=== PATIENT | male | born 1950 | race Caucasian/White ===

== ENCOUNTER 2022-02-25 19:18 | Emergency (ER) | payer OTHER ==
--- OUTSIDE RECORDS SUMMARY | 2022-02-25 19:21 | XMS REPORT | Continuity of Care Document ---
:1950 Author Organization [facility] t Address [address] [place] [address] Care Team Providers Name Role Phone Unavailable Unavailable Unavailable Payers Payer Name Policy Type Policy Number Effective Date Expiration Date S ource Problems This patient has no known problems. Allergies, Adverse Reactions, Alerts Allergy Allergy Status Severity Reaction(s) Onset Inactive Treating Comm ents Source Name Type Date Date Clinician No Known DA Active U 0 [facility] No Known DA Active U 0 [facility] No Known DA Active U 2008-0 [facility] 06-02 [facility] Intolera 00:00: d nces 00 [facility] Not DA Active U 2008-0 [facility] Converte 06-02 [facility] d 80. 00:00: d See 00 [facility] Medications This patient has no known medications. Procedures This patient has no known procedures. Encounters Start End Encounter Admission Attending Care Care Encounter Source Date/Time Date/Time Type Type Clinicians Facility Department ID 2020-06-10 Inpatient [facility] SUSY [id number] [facility] 09:41:00 [facility] Results Test Description Test Time Test Comments Results Result Comments Source GLUBED 2020-06-11 21:11:00 Test Item Value Reference Range Interpretation Comme nts GLUBED (test code = GLUBED) 227 MG/DL 74-106 H [id number] 06:37:00 Test Item Value Reference Range Interpretation Comments GLUBED (test code = GLUBED) 147 MG/DL 74-106 H PROCALCITONIN (PCT)2020-06-11 05:23:00 Test Item Value Reference Range Interpretation Comments PROCALCITONIN (PCT) 2.24 NG/ML HH Critical Value reported (test code = PROCAL) toFirst Name:[id number] Last Name:MACI NARAYAN READ BACK AND ISABELLE NicholsLAB.RD, on , @ 5656. Proca lcitonin (PCT) Normal Va lue: <0.05 NG/ML <0. 5 NG/ML - low risk of s evere sepsis and/or s eptic shock>2.0 NG/ML - high risk of severe sepsis and/or septic s hock PCT concentrations between 0.5 and 2.0 NG/ ML should beinterp reted taking into acc ount the patient's histo ry.It is recommended to retest PCT within 6-24 hours if anyconcentra tions between 0.5-2.0 NG/ML are obtained. LACTIC [id number] 05:04:00 Test Item Value Reference Range Interpretation Comments LACTIC ACID (test code = LACT) 0.9 mmol/L 0.7-2.0 N [id number] 20:54:00 Test Item Value Reference Range Interpretation Comments GLUBED (test code = GLUBED) 228 MG/DL 74-106 H [id number] 18:34:00 Test Item Value Reference Range Interpretation Comments D-DIMER (test 727 ng/mLFEU 0-500 HH Critical Value reported code = toFirst Name:FT [id number] Last DDIMER) Name:RESULTS RE AD BACK AND VERIFIEDby TALA SMITH, on 06/10/20, @ 183 4.THE DDIMER METHOD IS USED IN THE EXCLUSION OF DE EP VEINTHROMBOSIS AND/OR PULMONARY EMBOL ISM AND THE CLINICAL CUT-OF F VALUE FOR EXCLUSION (500 NG/ML FEU) OF THESE CONDITION SIS VALIDATED BY THE MANUFACT URER OF THE METHOD. A NEGAT LEXX DDIMER RESULT WHEN COM BINED WITH A CLINICALASSESSM ENT OF LOW PRETEST PROBABI LITY HAS BEEN SHOWN TO HAVEA HIGH NEGATIVE PREDICTIVE VALU E OF DVT OR PE. D-DIMER ALEXUS UES >500 ng/mL ARE NOT D IAGNOSTIC FOR DVT,PEOR DIC WI THOUT OTHER CONFIRMATORY TE STS AND APPROPRIATECLIN ICAL EVALUATIONS. LACTIC DEHYDROGENASE(LDH)2020-06-10 17:52:00 Test Item Value Reference Range Interpretation Comments LACTIC 374 U/L 313-618 N DEHYDROGENASE(LDH) (test code = LDH) Please be advised of the updated reference range s for the new Chemistry instrumentation . [id number] 17:52:00 Test Item Value Reference Range Interpretation Comments FERRITIN (test code = ANABEL) 30.0 ng/mL 17.9-464 N C REACTIVE [id number] 17:52:00 Test Item Value Reference Range Interpretation Comments C REACTIVE PROTEIN (test code = 44.3 mg/L 0-9 H CRP) LACTIC [id number] 17:41:00 Test Item Value Reference Range Interpretation Comments LACTIC ACID (test 2.8 mmol/L 0.7-2.0 HH Critical V alue reported code = LACT) toFirst Name: [id number] Last Name:RESUL TS READ BACK AND VERIFI EDby JONNATHANLAV, on 0 06/10/20, @ 1741. LACTIC DEHYDROGENASE(LDH)2020-06-10 17:40:00 Test Item Value Reference Range Interpretation Comments LACTIC 374 U/L 313-618 N DEHYDROGENASE(LDH) (test code = LDH) Please be advised of the updated reference range s for the new Chemistry instrumentation . [id number] 17:40:00 Test Item Value Reference Range Interpretation Comments FERRITIN (test code = ANABEL) ng/mL 17.9-464 C REACTIVE [id number] 17:40:00 Test Item Value Reference Range Interpretation Comments C REACTIVE PROTEIN (test code = 44.3 mg/L 0-9 H CRP) CARDIAC ENZYMES [id number] 17:28:00 Test Item Value Reference Range Interpretation Comments TROPONIN-I (test 0.013 ng/mL 0.012-0.033 N code = TROPI) Please be advised of the updated reference ranges for the new Chemistry instrumentation . TROS TROPONIN I CRITERIANORM AL PATIENT W/O CIRCULATING TNI: 0.012-0.033 ng/mLCIRCULATIN G TNI PRESENT: 0.034- 0.119 ng/mL(MAY BE AT RISK OF AMI)AMI DIAGNOS TIC CUTOFF: >/= 0.120 ng/mL~~~~~~~~~~ ~~~~~~~~~~~ ~~~~~~~~~~~~~~~ ~~~~~~~~~~~ ~~~~~~~~~~~~The use of serial sampling and testing protoco l is arecommended pr actice.An elevated tropon in level alone is often not sufficient gutierrez iagnosis of myocardial infa rction. Troponin result s obtained by different as says may vary.Evaluation of the extent of myoca rdial damage based on increase of troponin would be valid only if similar methodology is used.~~~~~~~~~~ ~~~~~~~~~~~ ~~~~~~~~~~~~~~~ ~~~~~~~~~~~ ~~~~~~~~~~~~ CARDIAC ENZYMES [id number] 16:25:00 Test Item Value Reference Range Interpretation Comments TROPONIN-I (test 0.019 ng/mL 0.012-0.033 N code = TROPI) Please be advised of the updated reference ranges for the new Chemistry instrumentation . TROS TROPONIN I CRITERIANORM AL PATIENT W/O CIRCULATING TNI: 0.012-0.033 ng/mLCIRCULATIN G TNI PRESENT: 0.034- 0.119 ng/mL(MAY BE AT RISK OF AMI)AMI DIAGNOS TIC CUTOFF: >/= 0.120 ng/mL~~~~~~~~~~ ~~~~~~~~~~~ ~~~~~~~~~~~~~~~ ~~~~~~~~~~~ ~~~~~~~~~~~~The use of serial sampling and testing protoco l is arecommended pr actice.An elevated tropon in level alone is often not sufficient gutierrez iagnosis of myocardial infa rction. Troponin result s obtained by different as says may vary.Evaluation of the extent of myoca rdial damage based on increase of troponin would be valid only if similar methodology is used.~~~~~~~~~~ ~~~~~~~~~~~ ~~~~~~~~~~~~~~~ ~~~~~~~~~~~ ~~~~~~~~~~~~ UA RFLX MICR CULT IF [id number] 16:07:00 Test Item Value Reference Range Interpretation Comments UA COLOR (test code = Yellow Yellow COLU) UA APPEARANCE (test Clear Clear code = APPU) UA GLUCOSE DIPSTICK 50 (1+) Negative A (test code = DGLUU) UA BILIRUBIN DIPSTICK Negative Negative (test code = BILU) UA KETONE DIPSTICK Negative mg/dL Negative (test code = KETU) UA SPECIFIC GRAVITY 1.033 <1.030 A (test code = SGU) UA BLOOD DIPSTICK Negative Negative (test code = TAM) UA PH DIPSTICK (test 5.0 5.0-8.0 code = AKILA) UA PROTEIN DIPSTICK NEGATIVE mg/dL Negative (test code = PROU) UA UROBILINOGEN Negative mg/dL Negative DIPSTICK (test code = URO) UA NITRITE DIPSTICK Negative Negative (test code = NE) UA LEUKOCYTE ESTERASE NEGATIVE Negative DIPSTICK (test code = LEUU) UA WBC (test code = 0-3 /HPF <4-5 <10 WBC/ HPF = WBCUR) PYURIA ABSENT URINE CULTURE NOT INDICATED UA RBC (test code = 0-3 /HPF <4-5 RBCU) UA BACTERIA (test NONE SEEN /HPF None-Rare code = BACU) SOURCE OF URINE: CLEAN CATCHIndication for culture: Temperature > 100.4 F LIPID PROFILE (CORONARY RISK)2020-06-10 15:17:00 Test Item Value Reference Range Interpretation Comments TRIGLYCERIDES (test 179 mg/dL TRIGLYCE RIDES code = TRIG) REFERENCE RANGE:Normal: < 150 mg/dLBorderline High: 150-199 mg/dLHi gh: 200-499 mg/dLVe ry High: >=500 mg/ dL CHOLESTEROL (test 138 mg/dL CHOLESTERO L REFERENCE code = CHOL) RANGE:DESIRABLE : < 200 mg/dLBORDER LINE: 200-239 mg/dLHI GH: >=240 mg/dL HDL CHOLESTEROL (test 32 mg/dL 40-59 L code = HDL) LIPOPROTEIN LDL (test 71.07 mg/dL 32-99 N code = LDLC) CORONARY RISK FACTOR 4.31 (test code = RISK) CHOL/HDL RISK MALE: 1/2 AVG 3.43 FEMALE: 1/2 AV G 3.27 AVG 4.97 AVG 4.44 2X AVG 9.55 2X AVG 7.05 3X AVG 23. 39 3X AVG 11.04~~~~~~~~~~ ~~~~~~ ~~~~~~~~~~~~~~~ ~~~~~~ ~~~~~~~~~~~~~~~ ~~~~~~ ~~National Cholesterol Edu cation (NCEP) Guidelines:~~~~ ~~~~~~ ~~~~~~~~~~~~~~~ ~~~~~~ ~~~~~~~~~~~~~~~ ~~~~~~ ~~~~~~~~ HDL Cholesterol<4 0mg/dL : HDL Cholester ol (Major risk fac tor for CHD)>60mg/d L: HDL Cholesterol (Ne gative risk factor for CHD)40-59mg/dL: Borderline Risk LDL Cholesterol<1 00mg/d L: Desirable LD L-C clnmzdiytswrq59 0-159m g/dL: Borderlin e High Risk LDL-C yztwgezqotkjl05 0-189m g/dL: High risk LDL-C concentration H DL-LDL Cholesterol is affected by a n umber of factors such as smoking, age an d sex.~~~~~~~~~~~ ~~~~~~ ~~~~~~~~~~~~~~~ ~~~~~~ ~~~~~~~~~~~~~~~ ~~~~~~ ~ [id number] 15:17:00 Test Item Value Reference Range Interpretation Comments MAGNESIUM (test code = MAG) 1.4 mg/dL 1.6-2.3 L LIPID PROFILE (CORONARY RISK)2020-06-10 14:55:00 Test Item Value Reference Range Interpretation Comments TRIGLYCERIDES (test 179 mg/dL TRIGLYCE RIDES code = TRIG) REFERENCE RANGE:Normal: < 150 mg/dLBorderline High: 150-199 mg/dLHi gh: 200-499 mg/dLVe ry High: >=500 mg/ dL CHOLESTEROL (test code 138 mg/dL SRAVANI STEROL REFERENCE = CHOL) RANGE:DESIRABLE : < 200 mg/dLBORDERLINE : 200-239 mg/dLHI GH: >=240 mg/dL HDL CHOLESTEROL (test 32 mg/dL 40-59 L code = HDL) LIPOPROTEIN LDL (test mg/dL 32-99 code = LDLC) CORONARY RISK FACTOR 4.31 (test code = RISK) CHOL/HDL RISK MALE: 1/2 AVG 3.43 FEMALE: 1/2 AV G 3.27 AVG 4.97 AVG 4.44 2X AVG 9.55 2X AVG 7.05 3X AVG 23.39 3X AVG 11.04~~~~~~~~~~ ~~~~~~~ ~~~~~~~~~~~~~~~ ~~~~~~~ ~~~~~~~~~~~~~~~ ~~~~~~N at[facility] Cholest rodney Education (NCEP ) Guidelines:~~~~ ~~~~~~~ ~~~~~~~~~~~~~~~ ~~~~~~~ ~~~~~~~~~~~~~~~ ~~~~~~~ ~~~~~ HDL Cholesterol<4 0mg/dL: HDL Cholesterol (Major risk factor for CHD)>60mg/dL: H DL Cholesterol (Ne gative risk factor for CHD)40-59mg/dL: Borderline Risk L DL Cholesterol<1 00mg/dL : Desirable LDL -C uzsnglkouggwz40 0-159mg /dL: Borderline High Risk LDL-C kjgufloaywrqa65 0-189mg /dL: High risk LDL-C concentration H DL-LDL Cholesterol is affected by a n umber of factors such as smoking, age an d sex.~~~~~~~~~~~ ~~~~~~~ ~~~~~~~~~~~~~~~ ~~~~~~~ ~~~~~~~~~~~~~~~ ~~~~~ [id number] 14:55:00 Test Item Value Reference Range Interpretation Comments MAGNESIUM (test code = MAG) 1.4 mg/dL 1.6-2.3 L COVID 19 INHOUSE [id number] 11:43:00 Test Item Value Reference Range Interpretation Comments COVID 19 INHOUSE AG (test code = NEGATIVE Negative [id number]) LACTIC [id number] 11:33:00 Test Item Value Reference Range Interpretation Comments LACTIC ACID (test 2.3 mmol/L 0.7-2.0 HH Critical V alue reported code = LACT) toFirst Name: [id number] Last Name:[facility] HELENE READ BACK AND ISABELLE NicholsLAB.MY, on , @ 1133. BASIC METABOLIC [id number] 11:32:00 Test Item Value Reference Range Interpretation Comments SODIUM (test code = 136 mmol/L 137-145 L NA) POTASSIUM (test code 3.9 mmol/L 3.4-5.0 N = K) CHLORIDE (test code = 101 mmol/L 98-107 N CL) CARBON DIOXIDE (test 22 mmol/L 22-30 N code = CO2) GLUCOSE (test code = 163 mg/dL 74-106 H GLU) BLOOD UREA NITROGEN 25 mg/dL 9-20 H (test code = BUN) GLOMERULAR FILTRATION 89 >60 The es timated RATE (test code = glomerular filtration GFR) rate is compute d usingpatient ra ce, age (>18), sex, and serum creatinine. If anyof the needed data elements are mi ssing the Laboratory cannot compute an wilver mation of the glomerul ar filtration rate . CREATININE (test code 0.9 mg/dL 0.7-1.3 N = CREAT) CALCIUM (test code = 9.1 mg/dL 8.4-10.2 N CA) LIVER FUNCTION [id number] 11:32:00 Test Item Value Reference Range Interpretation Comments TOTAL PROTEIN (test 6.7 g/dL 6.3-8.2 N code = PROT) ALBUMIN (test code = 4.3 g/dL 3.5-5.0 N ALB) BILIRUBIN TOTAL (test 0.6 mg/dL 0.2-1.3 N code = BILT) BILIRUBIN CONJUGATED 0 mg/dL 0-0.3 N ~~~~~~~ ~~~~~~~~~~~~~~ (test code = BILCON) ~~~~~~~ ~~~~~~~~~~~~~~ ~~~~~~~~~~~~~~~ ~~~CON JUGATED BILIRUB IN IS THE REPLACEMENT ASSAY FOR DIRECTBILIRUBIN .~~~~~ ~~~~~~~~~~~~~~~ ~~~~~~ ~~~~~~~~~~~~~~~ ~~~~~~ ~~~~~~~~~~~~~ BILIRUBIN UNCONJUGATED 0.3 mg/dL 0-1.1 N (test code = BILUNC) SGOT/AST (test code = 33 U/L 15-46 N AST) SGPT/ALT (test code = 35 U/L 13-69 N ALT) ALKALINE PHOSPHATASE 39 U/L 38-126 N (test code = ALKP) [id number] 11:32:00 Test Item Value Reference Range Interpretation Comments LIPASE (test code = LIP) 49 U/L 23-300 N NT PRO-BRAIN NATRIURETIC [id number] 11:32:00 Test Item Value Reference Range Interpretation Comments NT PRO-BRAIN 43.1 pg/mL 0-299 N ~~~~~~~~~~~~~~~ ~~~~~~~~ NATRIURETIC PEPTI ~~~~~~~~~~ ~~~~~~~~~~~~~ (test code = PROBNP) ~~~~~~~ ~~~~~~~NT PRO-BNP IS THE REPLACEMENT ASS AY FOR BNP.~~~~~~~~~~~ ~~~~~~~~ ~~~~~~~~~~~~~~~ ~~~~~~~~ ~~~~~~~~~~~~~~~ ~~~RULE- IN CUT POINTS F OR PATIENTS WITH S USPECTED ACUTECONGESTIVE HEART FAILURE:<50 yrs old: >450 pg/mL50-75 yrs old: >900 pg/mL >75 yrs old: >1800 pg/mL A positive bias m ay occur on patients yuliana ing BIOTINsupplemen ts. BASIC METABOLIC [id number] 11:24:00 Test Item Value Reference Range Interpretation Comments SODIUM (test code = 136 mmol/L 137-145 L NA) POTASSIUM (test code 3.9 mmol/L 3.4-5.0 N = K) CHLORIDE (test code = 101 mmol/L 98-107 N CL) CARBON DIOXIDE (test 22 mmol/L 22-30 N code = CO2) GLUCOSE (test code = 163 mg/dL 74-106 H GLU) BLOOD UREA NITROGEN 25 mg/dL 9-20 H (test code = BUN) GLOMERULAR FILTRATION 89 >60 The es timated RATE (test code = glomerular filtration GFR) rate is compute d usingpatient ra ce, age (>18), sex, and serum creatinine. If anyof the needed data elements are mi ssing the Laboratory cannot compute an wilver mation of the glomerul ar filtration rate . CREATININE (test code 0.9 mg/dL 0.7-1.3 N = CREAT) CALCIUM (test code = 9.1 mg/dL 8.4-10.2 N CA) LIVER FUNCTION [id number] 11:24:00 Test Item Value Reference Range Interpretation Comments TOTAL PROTEIN (test 6.7 g/dL 6.3-8.2 N code = PROT) ALBUMIN (test code = 4.3 g/dL 3.5-5.0 N ALB) BILIRUBIN TOTAL (test 0.6 mg/dL 0.2-1.3 N code = BILT) BILIRUBIN CONJUGATED 0 mg/dL 0-0.3 N ~~~~~~~ ~~~~~~~~~~~~~~ (test code = BILCON) ~~~~~~~ ~~~~~~~~~~~~~~ ~~~~~~~~~~~~~~~ ~~~CON JUGATED BILIRUB IN IS THE REPLACEMENT ASSAY FOR DIRECTBILIRUBIN .~~~~~ ~~~~~~~~~~~~~~~ ~~~~~~ ~~~~~~~~~~~~~~~ ~~~~~~ ~~~~~~~~~~~~~ BILIRUBIN UNCONJUGATED 0.3 mg/dL 0-1.1 N (test code = BILUNC) SGOT/AST (test code = 33 U/L 15-46 N AST) SGPT/ALT (test code = 35 U/L 13-69 N ALT) ALKALINE PHOSPHATASE 39 U/L 38-126 N (test code = ALKP) [id number] 11:24:00 Test Item Value Reference Range Interpretation Comments LIPASE (test code = LIP) U/L 23-300 NT PRO-BRAIN NATRIURETIC [id number] 11:24:00 Test Item Value Reference Range Interpretation Comments NT PRO-BRAIN NATRIURETIC PEPTI (test pg/mL 0-299 code = PROBNP) BASIC METABOLIC [id number] 11:24:00 Test Item Value Reference Range Interpretation Comments SODIUM (test code = 136 mmol/L 137-145 L NA) POTASSIUM (test code 3.9 mmol/L 3.4-5.0 N = K) CHLORIDE (test code = 101 mmol/L 98-107 N CL) CARBON DIOXIDE (test 22 mmol/L 22-30 N code = CO2) GLUCOSE (test code = 163 mg/dL 74-106 H GLU) BLOOD UREA NITROGEN 25 mg/dL 9-20 H (test code = BUN) GLOMERULAR FILTRATION 89 >60 The es timated RATE (test code = glomerular filtration GFR) rate is compute d usingpatient ra ce, age (>18), sex, and serum creatinine. If anyof the needed data elements are mi ssing the Laboratory cannot compute an wilver mation of the glomerul ar filtration rate . CREATININE (test code 0.9 mg/dL 0.7-1.3 N = CREAT) CALCIUM (test code = 9.1 mg/dL 8.4-10.2 N CA) LIVER FUNCTION [id number] 11:24:00 Test Item Value Reference Range Interpretation Comments TOTAL PROTEIN (test 6.7 g/dL 6.3-8.2 N code = PROT) ALBUMIN (test code = 4.3 g/dL 3.5-5.0 N ALB) BILIRUBIN TOTAL (test 0.6 mg/dL 0.2-1.3 N code = BILT) BILIRUBIN CONJUGATED 0 mg/dL 0-0.3 N ~~~~~~~ ~~~~~~~~~~~~~~ (test code = BILCON) ~~~~~~~ ~~~~~~~~~~~~~~ ~~~~~~~~~~~~~~~ ~~~CON JUGATED BILIRUB IN IS THE REPLACEMENT ASSAY FOR DIRECTBILIRUBIN .~~~~~ ~~~~~~~~~~~~~~~ ~~~~~~ ~~~~~~~~~~~~~~~ ~~~~~~ ~~~~~~~~~~~~~ BILIRUBIN UNCONJUGATED 0.3 mg/dL 0-1.1 N (test code = BILUNC) SGOT/AST (test code = 33 U/L 15-46 N AST) SGPT/ALT (test code = 35 U/L 13-69 N ALT) ALKALINE PHOSPHATASE 39 U/L 38-126 N (test code = ALKP) [id number] 11:24:00 Test Item Value Reference Range Interpretation Comments LIPASE (test code = LIP) 49 U/L 23-300 N NT PRO-BRAIN NATRIURETIC [id number] 11:24:00 Test Item Value Reference Range Interpretation Comments NT PRO-BRAIN NATRIURETIC PEPTI (test pg/mL 0-299 code = PROBNP) PROTHROMBIN [id number] 11:12:00 Test Item Value Reference Range Interpretation Comments PROTHROMBIN TIME 11.6 SECONDS 9.2-12.1 N PATIENT (test code = PTP) INTERNATIONAL NORMAL 1.0 The INR is to be used RATIO (test code = only for monitoring INR) ORAL ANTICOAGULANTTH ERAPY. Indicati on INR Value1. Prophylaxis/suleiman atment of: Venous Thrombosis, Pul monary Embolism 2.0 - 3.02. Preventi on of systemic emboli sm from: Tiss ue heart valves 2.0 - 3.0 Acute myocardial infa rction (to present systemic emboli sm)* 2.0 - 3.0 Valvular heart disease 2.0 - 3.0 Atrial fibrillation 2.0 - 3.03. Civil Rights Representative al prosthetic valv es (high risk) 2.5 - 3.5 * If oral anticoagulant t herapy is elected to preventrecurren t myocardial infa rction, an INR of 2.5-3 .5 isrecommended, consistent with Food and Drug Administrationr ecommen dations. THROMBOPLASTIN TIME [id number] 11:12:00 Test Item Value Reference Range Interpretation Comments THROMBOPLASTIN TIME 24.0 SECONDS 23.4-37.0 N Therap eutic Range PARTIAL (test code = for Hep fernando PTT) EFFECTIVE Heparin IU/mL aPT T Seconds0.3 64.30.7 88.8 - CT ABD PELVIS [id number] 11:03:00 [place]: St: PRE Name: JAMIE BEAVER [facility] : 1950 Age/S: 70/M [address] Unit: [id number] Loc: [place] [address] Phys: Jacobo Harrison MD Acct: [id number] Dis Date: Status: PRE ER PHONE #: [phone] Exam Date: 06/10/2020 1043 FAX #: [phone] Reason: abd pain, n/v EXAMS: CPT CODE: [id number] CT ABD PELVIS W/CONT [id number] CLINICAL HISTORY: abd pain, n/v. LOCATION: A1 FINDINGS: Following the administration of 100 mL Isovue intravenous contrast only, multislice axial images are obtained through the abdomen and pelvis during the venous phase. Coronal and sagittal reconstructed images are obtained and are used in interpretation. Creatinine and GFR are not given. Diffuse low-density of the liver suggests fatty in filtration but is not accurately evaluated with contrast. The liver is enlarged measuring 17.9 cm craniocaudal at the midclavicular line. No abnormalities are noted of the gallbladder, pancreas, or spleen. The adrenal glands and kidneys are within normal limits. There is mild prostate enlargement. The prostate gland measures 5.0 cm transverse. There is no significant adenopathy. No free fluid or fluid collections are evident. No focal signs of inflammation are noted. The appendix is normal in appearance. There is severe calcification of the abdominal aorta. There is a small fat-containing umbilical hernia measuring 2.8 cm AP by3.1 cm transverse. There is a mild fat containing right inguinal hernia. There is a chronic appearing moderate compression deformity of L2. No acute skeletal or soft tissue abnormalities are identified. There are diffuse patchy mild to moderate infiltrates throughout the visualized right lower lung. IMPRESSION: 1. Hepatomegaly 2. Mild prostate enlargement 3. There are diffuse patchy mild to moderate infiltrates throughout the visualized right lower lung. The appearance is nonspecific but may be seen with viral pneumonia. Please correlate clinically. This exam was performed according to our departmental dose-optimization program, which includes automated ex posure control, adjustment of the mA and/or kV according to patient size and/or use of iterative reconstruction technique PAGE 1 Signed Report (CONTINUED) [place]: St: PRE Name: JAMIE BEAVER [facility] : 1950 Age/S: 70/M [address] Unit: [id number] Loc: [place] [address] Phys: Jacobo Harrison MD Acct: [id number] Dis Date: Status: PRE ER PHONE #: [phone] Exam Date: 06/10/20201043 FAX #: [phone] Reason: abd pain, n/v EXAMS: CPT CODE: [id number] CT ABD PELVIS W/CONT [id number] <Continued> at 1103 Reported and signed by: Aidan Deluca MD CC: Technologist: Mercedez Tao Trnscrd Dt/Tm: 06/10/2020 (1103) [email or web address] Orig Print D/T: S: 06/10/2020 (1106 PAGE 2 Signed ReportCBC W/AUTO [id number] 11:02:00 Test Item Value Reference Range Interpretation Comments WHITE BLOOD CELL (test code = 8.6 x10 3/uL 5.0-12.0 N WBC) RED BLOOD CELL (test code = 4.13 x10 6/uL 4.70-6.10 L RBC) HEMOGLOBIN (test code = HGB) 11.7 g/dL 14.0-18.0 L HEMATOCRIT (test code = HCT) 35.0 % 37.0-49.0 L MEAN CELL VOLUME (test code = 85 fL 80-94 N MCV) MEAN CELL HGB (test code = MCH) 28.3 pg 27-31 N MEAN CELL HGB CONCENTRATION 33.4 g/dL 33-37 N (test code = MCHC) RED CELL DISTRIBUTION WIDTH 13.2 % 11.5-15.5 N (test code = RDW) PLATELET COUNT (test code = 191 x10 3/uL 130-400 N PLT) MEAN PLATELET VOLUME (test code 9.7 fL 9.4-16.4 N = MPV) NEUTROPHIL % (test code = NT%) 84.5 % 43-65 H IMMATURE GRANULOCYTE % (test 0.3 % 0.0-2.0 N code = IG%) LYMPHOCYTE % (test code = LY%) 7.2 % 20.5-45.5 L MONOCYTE % (test code = MO%) 7.1 % 5.5-11.7 N EOSINOPHIL % (test code = EO%) 0.7 % 0.9-2.9 L BASOPHIL % (test code = BA%) 0.2 % 0.2-1.0 N NUCLEATED RBC % (test code = 0.0 % 0-1.0 N NRBC%) NEUTROPHIL # (test code = NT#) 7.24 x10 3/uL 2.2-4.8 H IMMATURE GRANULOCYTE # (test 0.03 x10 3/uL 0-0.03 N code = IG#) LYMPHOCYTE # (test code = LY#) 0.62 x10 3/uL 1.3-2.9 L MONOCYTE # (test code = MO#) 0.61 x10 3/uL 0.3-0.8 N EOSINOPHIL # (test code = EO#) 0.06 x10 3/uL 0.0-0.2 N BASOPHIL # (test code = BA#) 0.02 x10 3/uL 0.0-0.1 N TROPONIN I [id number] 10:57:00 Test Item Value Reference Range Interpretation Comments TROPONIN I RAPID 0.01 ng/mL 0.00-0.079 N ISTAT (test code = TROPONIN I TROPIRAP) CRITERIA0.00-0. 08 ng/mL - Negative>0.08 n g/mL - Positive The us e of serial sampling and te sting protocol is are commended practice.An markel vated troponin level alone is often not suffi cient fordiagnosis of myocardial infarction. Liam rubioin results obtaine d by different assay s may vary.Evaluation of the extent of myoca rdial damage based on increase of troponin would be valid only if similar methodology is used. - XR KNEE 3 V [id number] 10:56:00 [place]: St: PRE Name: JAMIE BEAVER [facility] : 1950 Age/S: 70/M [address] Unit#: [id number] Loc: [place] [address] Phys: Jacobo Harrison MD Acct: [id number] Dis Date: Status: PRE ER PHONE #: [phone] Exam Date: 06/10/2020 1030 FAX #: [phone] Reason: kneee pain EXAMS: CPT CODE: [id number] XR KNEE 3 [place] [address] R16 EXAM: - XR KNEE 3 V LT HISTORY: knee pain COMPARISON: None FINDINGS: No acute fracture or dislocation. The joint spaces are preserved. No aggressive osseous lesions. Mild vascular calcifications. IMPRESSION: No acute osseous abnormality. at 1056 Reported and signed by:Juventino Mcclendon MD CC: Technologist: RINA Ricardo Date/Time/By: 06/10/2020 (7848) : By: [email or web address] PAGE 1 Signed Report [place]: St: PRE Name: JAMIE BEAVER [facility] : 1950 Age/S: 70/M [address] Unit #: [id number] Loc: [place] [address] Phys: Jacobo Harrison MD Acct: [id number] Dis Date: Status: PRE ER PHONE #: [phone] Exam Date: 06/10/2020 1030 FAX #: [phone] Reason: kneee pain EXAMS: CPT CODE: [id number] XR KNEE 3 V LT [id number] <Continued> Orig Print D/T: S: 06/10/2020 (7888) PAGE 2 Signed Report- XR CHEST 1 [id number] 10:53:00 [place]: St: PRE Name: [facility] [facility] : 1950 Age/S: 70/M [address] Unit#: [id number] Loc: [place] [address] Phys: Jacobo Harrison MD Acct: [id number] Dis Date: Status: PRE ER PHONE #: [phone] Exam Date: 06/10/2020 1030 FAX #: [phone] Reason: CODE SEPSIS EXAMS: CPT CODE: [id number] XR CHEST 1 V 56368 R16 EXAM: - XR CHEST 1 V HISTORY:CODE SEPSIS COMPARISON: None FINDINGS: Confluent perihilarairspace opacities, right greater than left. No pleural effusion or pneumothorax. The cardiac silhouette is within normal limits. No acute osseous abnormalities. IMPRESSION: Perihilar pulmonary edema and/or pneumonia. at 1053 Reported and signed by: Juventino Mcclendon MD CC: Technologist: ALEXI LOBO Trnncrd Date/Time/By: 06/10/2020 (1053) : By: [email or web address] PAGE 1 Signed Report [place]: St: PRE -------- Name: JAMIE BEAVER [facility] : 1950 Age/S: 70/M [address] Unit #: [id number] Loc: [place] [address] Phys: Jacobo Harrison MD Acct: [id number] Dis Date: Status: PRE ER PHONE #: [phone] Exam Date: 06/10/2020 1030 FAX #: [phone] Reason: CODE SEPSIS EXAMS: CPT CODE: [id number] XR CHEST 1 V 42483 <Con tinued> Orig Print D/T: S: 06/10/2020 (6848) PAGE 2 Signed Report- CT HEAD/BRAIN W/O [id number] 10:47:00 [place]: St: PRE Name: JAMIE BEAVER [facility] : 1950 Age/S: 70/M [address] Unit: [id number] Loc: [place] [address] Phys: Jacobo Harrison MD Acct: [id number] Dis Date: Status: PRE ER PHONE #: [phone] Exam Date: 06/10/2020 1043 FAX #: [phone] Reason: AMS EXAMS: CPT CODE: [id number] CT HEAD/BRAIN W/O CONT 51742 CLINICAL HISTORY: AMS. LOCATION: A1 FINDINGS: Multislice axial noncontrast images are obtained through the head. [place] coronal reconstructed images are obtained and are used in interpretation. No comparison studies. No areas of abnormal density identified within the brain. There is no mass effect. No hydrocephalus. No intra or extra-axial hemorrhage or fluid collections are identified. There is no evidence of acute infarct. There is moderate to severe calcificati on of the cavernous internal carotid arteries. No abnormalities are noted of the visualized skeletal structures, sinuses, or soft tissues. IMPRESSION: 1.No significant abnormalities. This exam was performed according to our departmental dose- optimization program, which includes automated exposure control, adjustment ofthe mA and/or kV according to patient size and/or use of iterative reconstruction technique at 1045 Reported and signed by: Derek Deluca MD CC: Technologist: Mercedez Tao Trnscrd Dt/Tm: 06/10/2020 (1702) [email or web address] Orig Print D/T: S: 06/10/2020 (1000 PAGE 1 Signed ReportBEDSIDE [id number] 10:40:00 Test Item Value Reference Range Interpretation Comments BEDSIDE CREATININE (test code = 0.9 mg/dL 0.66-1.25 N CREATBED)
[2022-02-25] MEDS ORDERED: MORPHINE 4 MG/ML SYR ONE (20:09)
[2022-02-25] MEDS ORDERED: ONDANSETRON 4 MG/2 ML VIAL ONE (20:09)
[2022-02-25] MEDS ORDERED: NA CHLORIDE 0.9% 1,000 ML ONE (20:09)
[2022-02-25 20:14] LABS: Absolute Lymphocytes (CBC) 1.4 K/uL (0.7-4.9); Hematocrit 32.7 % (39.6-49.0); Lymphocytes % 21.3 % (15.3-44.8); MPV 8.2 fL (7.6-11.3); RBC Red Blood Cell Count 3.85 M/uL (4.33-5.43)
[2022-02-25 20:28] LABS: Urine Blood Negative (Negative); Urine Glucose Negative (Negative); Urine Protein Negative (Negative); Urine pH 5.5 (5.0-7.0)
[2022-02-25 20:34] LABS: Albumin 3.9 g/dL (3.4-5.0); Bilirubin Total 0.5 mg/dL (0.2-1.0); Potassium 4.1 mmol/L (3.5-5.1); Protein, Total 7.6 g/dL (6.4-8.2)
[2022-02-25 20:43] LABS: Urine Amorphous Sediment TRACE /HPF (NONE SEEN); Urine Bacteria <20 /HPF (NONE SEEN); Urine RBC <5 /HPF (NONE SEEN)
--- NOTE | 2022-02-25 21:24 | RAD REPORT ---
EXAM DESCRIPTION: US - Scrotum Testicles - 02/25/2022 8:35 pm CLINICAL HISTORY: Testicular pain COMPARISON: None FINDINGS: Right testicle measures 5 x 1.2 x 3.1 x 4 centimeters. Echotexture is homogeneous. Normal blood flow Left testicle measures 5.1 x 3.2 x 3 centimeters. Echotexture is homogeneous. Normal blood flow Left epididymis in size and echotexture. Normal blood flow is seen. 5 millimeter spermatocele The right epididymis is enlarged with increased blood flow. It contains a 1,1 centimeter fluid collec tion containing debris IMPRESSION: Right epididymitis 1.1 centimeter fluid collection within the right epididymis may represent a small abscess
--- NOTE | 2022-02-25 21:24 | RAD REPORT ---
EXAM DESCRIPTION: CT - Abdomen Pelvis Wo Contrast - 02/25/2022 8:51 pm CLINICAL HISTORY: Abdominal pain COMPARISON: 2020 TECHNIQUE: Computed axial tomography of the abdomen and pelvis was obtained. IV and oral contrast we re not requested. All CT scans are performed using dose optimization technique as appropriate and may include automated exposure control or mA/KV adjustment according to patient size. FINDINGS: The evaluation of solid organs, vessels and bowel is limited secondary to the lack of con trast administration. The liver, spleen, pancreas, adrenals and kidneys appear grossly normal. The appendix is normal. There is no evidence of diverticulitis. Moderate right and small left inguinal hernias contain fat Moderate umbilical hernia contains fat Old compression deformity L2 vertebral body IMPRESSION: No acute abnormality is displayed.
[2022-02-25] MEDS ORDERED: levoFLOXacin 250 MG TAB ONE (22:02)
--- NOTE | 2022-02-25 22:04 | ER ---
Nurse's Notes [facility] Name: Jeffrey Carr Age: 71 yrs Sex: Male : 1950 Arrival Date: 02/25/2022 Time: 19:20 Bed 5 Private MD: Diagnosis: Epididymitis;Dehydration;Chronic kidney disease, unspecified Presentation: 02/25 19:25 Chief complaint: Patient states: "My right testicle is swollen up and I feel the pain ab2 all the way through my back" Pt stated this started a week ago. Pt states he did have a hernia that was in his right groin area previously that his doctor was watching. Coronavirus screen: Vaccine status: Patient reports receiving the 2nd dose of the covid vaccine. Client denies travel out of the [place] in the last 14 days. At this time, the client does not indicate any symptoms associated with coronavirus-19. Ebola Screen: Patient negative for fever greater than or equal to 101.5 degrees Fahrenheit, and additional compatible Ebola Virus Disease symptoms Patient denies exposure to infectious person. Patient denies travel to an Ebola-affected area in the 21 days before illness onset. No symptoms or risks identified at this time. Initial Sepsis Screen: Does the patient meet any 2 criteria? No. Patient's initial sepsis screen is negative. Does the patient have a suspected source of infection? No. Patient's initial sepsis screen is negative. Risk Assessment: Do you want to hurt yourself or someone else? Patient reports no desire to harm self or others. Onset of symptoms is unknown. 19:25 Method Of Arrival: Wheelchair ab2 19:30 Acuity: LAURA 3 ab2 Triage Assessment: 19:30 General: Appears in no apparent distress. uncomfortable, Behavior is calm, cooperative, ab2 appropriate for age. Pain: Complains of pain in pelvis. Neuro: Level of Consciousness is awake, alert, obeys commands, Oriented to person, place, time, situation, Appropriate for age. Cardiovascular: No deficits noted. Denies chest pain, shortness of breath, Patient's skin is warm and dry. Respiratory: Airway is patent Respiratory effort is even, unlabored, Respiratory pattern is regular, symmetrical. GI: No deficits noted. : Reports pain testicle, Pain is 10 out of 10 on a pain scale. Historical: - Allergies: 19:28 No Known Allergies; ab2 - PMHx: 19:28 Hypertensive disorder; Diabetes mellitus; Hypercholesterolemia; Enlarged prostate; ab2 - Immunization history:: Adult Immunizations up to date. - Social history:: Smoking status: Patient denies any tobacco usage or history of. Screenin:40 Abuse screen: Denies threats or abuse. Nutritional screening: No deficits noted. bb Tuberculosis screening: No symptoms or risk factors identified. Fall Risk None identified. Assessment: 19:40 General: Appears in no apparent distress. uncomfortable, Behavior is calm, cooperative. bb Pain: Complains of pain in pelvis Pain currently is 10 out of 10 on a pain scale. Neuro: Level of Consciousness is awake, alert, obeys commands, Oriented to person, place, time, situation. Cardiovascular: Heart tones S1 S2 present Capillary refill < 3 seconds Patient's skin is warm and dry. Respiratory: Airway is patent Respiratory effort is even, unlabored, Respiratory pattern is regular. GI: Abdomen is round Bowel sounds present X 4 quads. EENT:. Derm: Skin is pink, warm \\T\\ dry. Musculoskeletal: Circulation, motion, and sensation intact. 20:16 Reassessment: US at bedside. bb 21:55 Reassessment: Patient is alert, oriented x 3, equal unlabored respirations, skin bb warm/dry/pink. Dr Leon at bedside for discussion of findings and recommendations. 22:16 Reassessment: Patient is alert, oriented x 3, equal unlabored respirations, skin bb warm/dry/pink. pt verbalized understanding of and agrees to plan of care discharge instructions given pt ambulated with steady gait to exit accompanied by spouse Patient states feeling better. Vital Signs: 19:30 BP 91 / 48; Pulse 73; Resp 19; Temp 98.4(TE); Pulse Ox 96% on R/A; Weight 113.4 kg; ab2 Height 5 ft. 10 in. (177.80 cm); Pain 10/10; 20:17 BP 113 / 61; Pulse 71; Resp 16 S; Pulse Ox 98% on R/A; bb 21:56 BP 101 / 54; Pulse 68; Resp 16 S; Pulse Ox 100% on R/A; bb 22:17 BP 103 / 53; Pulse 67; Resp 16 S; Pulse Ox 97% on R/A; bb 19:30 Body Mass Index 35.87 (113.40 kg, 177.80 cm) ab2 ED Course: 19:20 Patient arrived in ED. [email or web address] 19:30 Arm band placed on left wrist. ab2 19:31 Triage completed. ab2 19:40 Patient has correct armband on for positive identification. Bed in low position. Call bb light in reach. Side rails up X 1. Adult w/ patient. Pulse ox on. NIBP on. Warm blanket given. Pillow given. 19:45 Inserted saline lock: 20 gauge in right antecubital area, using aseptic technique. bb Blood collected. 19:49 Manfred Leon MD is Attending Physician. 7 19:51 Tata Nieves, ASH is Primary Nurse. bb 20:06 Initial lab(s) drawn, by me, sent to lab. bb 20:16 Urine collected: clean catch specimen, clear. bb 20:37 US Scrotum Testicles In Process Unspecified. EDMS 20:52 Abdomen In Process Unspecified. EDMS 22:03 Harvinder Horan MD is Referral Physician. mh7 22:07 Jorgito Pendleton MD is Referral Physician. 7 22:17 No provider procedures requiring assistance completed. IV discontinued, intact, bb bleeding controlled, No redness/swelling at site. Pressure dressing applied. Administered Medications: 20:15 Drug: NS 0.9% 1000 ml Route: IV; Rate: 1 bolus; Site: right antecubital; bb 21:15 Follow up: IV Status: Completed infusion; IV Intake: 1000ml bb 20:16 Drug: Zofran (Ondansetron) 4 mg Route: IVP; Site: right antecubital; bb 21:15 Follow up: Response: No adverse reaction bb 20:16 Drug: morphine 4 mg {Note: RASS 0.} Route: IVP; Site: right antecubital; bb 21:15 Follow up: Response: No adverse reaction; Pain is decreased; RASS: Alert and Calm (0) bb 22:02 Drug: LevaQUIN (levofloxacin) 500 mg Route: PO; sm5 22:18 Follow up: Response: No adverse reaction bb Intake: 21:15 IV: 1000ml; Total: 1000ml. bb Outcome: 22:03 Discharge ordered by . 7 22:17 Discharged to home ambulatory, with family. bb 22:17 Condition: stable 22:17 Discharge instructions given to patient, Instructed on discharge instructions, follow up and referral plans. medication usage, Demonstrated understanding of instructions, follow-up care, medications, Prescriptions given X 1. 22:19 Patient left the ED. bb Signatures: Dispatcher [employer] Tata Hernandez, RN RN Manfred Stern MD MD mh7 Oralia Rene6 Traci Gonzalez RN RN 5 Genaro Roberson
--- NOTE | 2022-02-25 22:04 | EDPHYS ---
Physician Documentation [facility] Name: Jeffrey Carr Age: 71 yrs Sex: Male : 1950 Arrival Date: 02/25/2022 Time: 19:20 Bed 5 Private MD: ED Physician Manfred Leon HPI: 02/25 20:37 This 71 yrs old Unknown Male presents to ER via Wheelchair with complaints of mh7 Testicular Problem, Testicular Pain, Testicular Swelling. 20:37 The patient presents with scrotal pain, of the right side, with swelling. Onset: The mh7 symptoms/episode began/occurred 1 week(s) ago. Modifying factors: The symptoms are alleviated by nothing, the symptoms are aggravated by movement. Associated signs and symptoms: Pertinent positives: abdominal pain, right lower back pain, Pertinent negatives: constipation, diarrhea, dysuria, fever, hematuria, nausea, vomiting. Severity of symptoms: At their worst the symptoms were moderate, 6 day(s) ago, in the emergency department the symptoms have improved, moderately. States that a family member's dog jumped onto his lap a week ago then he later started having testicular pain. He also has been having lower abdominal pain and right lower back pain. Denies any fever, dysuria, nausea, vomiting, or other complaints.. Historical: - Allergies: 19:28 No Known Allergies; ab2 - PMHx: 19:28 Hypertensive disorder; Diabetes mellitus; Hypercholesterolemia; Enlarged prostate; ab2 - Immunization history:: Adult Immunizations up to date. - Social history:: Smoking status: Patient denies any tobacco usage or history of. ROS: 20:37 Constitutional: Negative for fever, chills, and weight loss, Eyes: Negative for injury, mh7 pain, redness, and discharge, ENT: Negative for injury, pain, and discharge, Neck: Negative for injury, pain, and swelling, Cardiovascular: Negative for chest pain, palpitations, and edema, Respiratory: Negative for shortness of breath, cough, wheezing, and pleuritic chest pain, MS/Extremity: Negative for injury and deformity, Skin: Negative for injury, rash, and discoloration, Neuro: Negative for headache, weakness, numbness, tingling, and seizure, Psych: Negative for depression, anxiety, suicide ideation, homicidal ideation, and hallucinations, Allergy/Immunology: Negative for hives, rash, and allergies, Endocrine: Negative for neck swelling, polydipsia, polyuria, polyphagia, and marked weight changes, Hematologic/Lymphatic: Negative for swollen nodes, abnormal bleeding, and unusual bruising. Exam: 20:37 Constitutional: This is a well developed, well nourished patient who is awake, alert, mh7 and in no acute distress. Head/Face: Normocephalic, atraumatic. Eyes: Pupils equal round and reactive to light, extra-ocular motions intact. Lids and lashes normal. Conjunctiva and sclera are non-icteric and not injected. Cornea within normal limits. Periorbital areas with no swelling, redness, or edema. Neck: Trachea midline, no thyromegaly or masses palpated, and no cervical lymphadenopathy. Supple, full range of motion without nuchal rigidity, or vertebral point tenderness. No Meningismus. Chest/axilla: Normal chest wall appearance and motion. Nontender with no deformity. No lesions are appreciated. Cardiovascular: Regular rate and rhythm with a normal S1 and S2. No gallops, murmurs, or rubs. Normal PMI, no JVD. No pulse deficits. Respiratory: Lungs have equal breath sounds bilaterally, clear to auscultation and percussion. No rales, rhonchi or wheezes noted. No increased work of breathing, no retractions or nasal flaring. MS/ Extremity: Pulses equal, no cyanosis. Neurovascular intact. Full, normal range of motion. Neuro: Awake and alert, GCS 15, oriented to person, place, time, and situation. Cranial nerves II-XII grossly intact. Motor strength 5/5 in all extremities. Sensory grossly intact. Cerebellar exam normal. Normal gait. Psych: Awake, alert, with orientation to person, place and time. Behavior, mood, and affect are within normal limits. 20:37 Abdomen/GI: Inspection: obese Bowel sounds: normal, in all quadrants, Palpation: mild mh7 abdominal tenderness, in the suprapubic area and right lower quadrant, mass, is not appreciated, rebound tenderness, is not appreciated, voluntary guarding, is not appreciated, involuntary guarding, is not appreciated, no appreciated organomegaly, Rectal exam: the exam is deferred, because of patient request, Indicators: McBurney's point is not tender, Mullen's sign is negative, Rovsing's sign is negative, Obturator sign is negative, Psoas sign is negative, Liver: no appreciated palpable abnormalities, Hernia: noted in the umbilical area, incarceration, is not appreciated, tenderness, is not appreciated. 20:37 Back: pain, is absent, ROM is normal, normal spinal alignment noted, CVA tenderness, is mh7 absent, vertebral tenderness, is not appreciated, muscle spasm, is not present. 20:37 : CVA tenderness, is absent, Male external genitalia: abrasion, is not present, erythema, is absent, penile discharge, is absent, puncture, is not present, swelling, of the right testicle is noted, testicle, that is mild, tenderness, of the right testicle is noted, of the epididymis area, that is moderate, Bladder: is normal. Vital Signs: 19:30 BP 91 / 48; Pulse 73; Resp 19; Temp 98.4(TE); Pulse Ox 96% on R/A; Weight 113.4 kg; ab2 Height 5 ft. 10 in. (177.80 cm); Pain 10/10; 20:17 BP 113 / 61; Pulse 71; Resp 16 S; Pulse Ox 98% on R/A; bb 21:56 BP 101 / 54; Pulse 68; Resp 16 S; Pulse Ox 100% on R/A; bb 22:17 BP 103 / 53; Pulse 67; Resp 16 S; Pulse Ox 97% on R/A; bb 19:30 Body Mass Index 35.87 (113.40 kg, 177.80 cm) ab2 MDM: 22:00 Differential diagnosis: nonspecific abdominal pain, appendicitis, UTI, urethritis, mh7 Testicular torsion, testicular contusion, epididymitis, orchitis. Data reviewed: vital signs, nurses notes, lab test result(s), CBC, electrolytes, urinalysis, radiologic studies, CT scan, ultrasound. Data interpreted: Pulse oximetry: on room air is 100 %. Interpretation: normal. Counseling: I had a detailed discussion with the patient and/or guardian regarding: the historical points, exam findings, and any diagnostic results supporting the discharge/admit diagnosis, lab results, radiology results, the need for outpatient follow up, a urologist, to return to the emergency department if symptoms worsen or persist or if there are any questions or concerns that arise at home. Response to treatment: the patient's symptoms have markedly improved after treatment. Physician consultation: Harvinder Horan MD was contacted at 21:40, regarding patient's condition, and will see patient in office. 22:[address] [facility] 02/25 20:01 Order name: CBC with Diff; Complete Time: 20:48 [facility] 02/25 20:01 Order name: CMP; Complete Time: 20:48 [facility] 02/25 20:01 Order name: Lipase; Complete Time: 20:48 [facility] 02/25 20:01 Order name: Urine Microscopic Only; Complete Time: 20:48 [facility] 02/25 20:29 Order name: Urine Dipstick-Ancillary; Complete Time: 20:48 [facility] 02/25 20:30 Order name: Urine Dipstick-Ancillary [facility] 02/25 20:01 Order name: US Scrotum Testicles; Complete Time: 21:31 [facility] 02/25 20:42 Order name: Abdomen ; Complete Time: 21:31 [facility] 02/25 20:01 Order name: IV Saline Lock; Complete Time: 20:06 [facility] 02/25 20:01 Order name: Labs collected and sent; Complete Time: 20:06 [facility] 02/25 20:01 Order name: Urine Dipstick-Ancillary (obtain specimen); Complete Time: 20:16 [facility] Administered Medications: 20:15 Drug: NS 0.9% 1000 ml Route: IV; Rate: 1 bolus; Site: right antecubital; bb 21:15 Follow up: IV Status: Completed infusion; IV Intake: 1000ml bb 20:16 Drug: Zofran (Ondansetron) 4 mg Route: IVP; Site: right antecubital; bb 21:15 Follow up: Response: No adverse reaction bb 20:16 Drug: morphine 4 mg {Note: RASS 0.} Route: IVP; Site: right antecubital; bb 21:15 Follow up: Response: No adverse reaction; Pain is decreased; RASS: Alert and Calm (0) bb 22:02 Drug: LevaQUIN (levofloxacin) 500 mg Route: PO; sm5 22:18 Follow up: Response: No adverse reaction bb Disposition Summary: 02/25/22 22:03 Discharge Ordered Location: Home [facility] Problem: new [facility] Symptoms: have improved [facility] Condition: Stable [facility] Diagnosis - Epididymitis [facility] - Dehydration [facility] - Chronic kidney disease, unspecified [facility] Followup: [facility] - With: Private Physician - When: 1 - 2 days - Reason: Worsening of condition, Recheck today's complaints, Continuance of care, Re-evaluation by your physician Followup: [facility] - With: Harvinder Horan MD - When: 1 - 2 days - Reason: Worsening of condition, Recheck today's complaints, Continuance of care Followup: [facility] - With: Jorgito Pendleton MD - When: 1 - 2 days - Reason: Worsening of condition, Recheck today's complaints Discharge Instructions: - Discharge Summary Sheet [facility] - Epididymitis [facility] - Dehydration, Adult, [id number] [facility] - Chronic Kidney Disease, Adult, [id number] [facility] Forms: - Medication Reconciliation Form [facility] - Thank You Letter [facility] - Antibiotic Education [facility] - Prescription Opioid Use [facility] Prescriptions: - levofloxacin 500 mg Oral Tablet - take 1 tablet by ORAL route once daily for 10 days; 10 tablet; Refills: 0, [facility] Product Selection Permitted Signatures: Dispatcher [employer] Tata Hernandez, RN RN bb Manfred Leon MD MD 7 Traci Gonzalez RN RN sm5 Genaro Roberson 2 Corrections: (The following items were deleted from the chart) 20:41 20:02 Abdomen Pelvis W Con+CT.RAD.BRZ ordered. [facility] SAMI
[2022-02-25 22:56] VITALS: TEMP 98.4
[2022-02-25 23:00] VITALS: BP 103/53; O2SAT 97
== END 2022-02-25 22:19 | disposition home or self-care (01) ==
LOC: ER 19:18
DX: N45.1 Epididymitis (principal); E86.0 Dehydration; E11.22 Type 2 diabetes mellitus with diabetic chronic kidney disease; I12.9 Hypertensive chronic kidney disease with stage 1 through stage 4 chronic kidney disease, or unspecified chronic kidney disease; N18.9 Chronic kidney disease, unspecified; E78.00 Pure hypercholesterolemia, unspecified
CPT/HCPCS: 96361; 85025; 36415; 83690; 80053; 74176; 76870; 96375; 96374; 99284; J7030; J2405; 81003; 81015

== ENCOUNTER 2022-03-09 06:30 | Day surgery (SDC) | payer OTHER ==
[2022-03-05 14:38] LABS: Absolute Lymphocytes (CBC) 1.6 K/uL (0.7-4.9); Hematocrit 34.1 % (39.6-49.0); Lymphocytes % 20.5 % (15.3-44.8); MPV 8.1 fL (7.6-11.3); RBC Red Blood Cell Count 4.08 M/uL (4.33-5.43)
[2022-03-05 14:53] LABS: Potassium 4.7 mmol/L (3.5-5.1)
--- NOTE | 2022-03-05 14:54 | RAD REPORT ---
EXAM DESCRIPTION: Colby Euceda And Sally (2 Views)03/05/2022 2:47 pm CLINICAL HISTORY: Preop for hernia repair. Hypertension COMPARISON: None FINDINGS: The lungs appear clear of acute infiltrate. The heart is normal size IMPRESSION: No acute abnormalities displayed
--- NOTE | 2022-03-06 08:31 | EKG ---
Test Date: 2022-03-05 Test Time: 13:20:35 Fire Investigation Lieutenant: REGINA MEASUREMENT RESULTS: Intervals: Rate: 77 DE: 184 QRSD: 84 QT: 372 QTc: 420 [place]: P: 61 DE: 184 QRS: 23 T: 51 INTERPRETIVE STATEMENTS: Normal sinus rhythm Normal ECG No previous ECG available for comparison Electronically Signed On 03-06-22 08:28:06 CDT by Ollie Zhou
[2022-03-09] MEDS ORDERED: NA CHLORIDE 0.9% 1,000 ML ONE ×2 (06:49→09:36)
[2022-03-09] MEDS ORDERED: CEFAZOLIN/SWI 2gm 2 GM/20 ML SYR ONE (06:49)
[2022-03-09] MEDS ORDERED: BUPIVACAINE 0.25% PF 10 ML VIAL ONE (06:59)
[2022-03-09] MEDS ORDERED: ACETAMINOPHEN 500 MG TAB ONE (07:00)
[2022-03-09] MEDS ORDERED: LIDOCAINE 2% MPF 5 ML VIAL ONE (08:34)
[2022-03-09] MEDS ORDERED: MIDAZOLAM HCL 2 MG/2 ML INJ ONE (08:34)
[2022-03-09] MEDS ORDERED: ROCURONIUM 50 MG/5 ML VIAL IV ONE (08:34)
[2022-03-09] MEDS ORDERED: FENTANYL CITR 100 MCG/2 ML ONE (08:34)
[2022-03-09] MEDS ORDERED: propofoL 200 MG/20 ML VIAL IV ONE (08:34)
[2022-03-09] MEDS ORDERED: ONDANSETRON 4 MG/2 ML VIAL ONE (09:09)
[2022-03-09] MEDS ORDERED: GLYCOPYRROLATE 0.2 MG/ML SYR ONE (09:11)
--- NOTE | 2022-03-09 09:14 | P.OP ---
Preoperative diagnosis: Incarcerated Ventral Hernia Postoperative diagnosis: Incarcerated Ventral Hernia Primary procedure: Laparoscopic Ventral Hernia Repair with Mesh Anesthesia: GETA + Local Estimated blood loss: <5cc Specimen: hernia contents Findings: Umbilical hernia with incarcerated omentum Complications: None Implants: Bard Ventralite ST mesh with echo 11.4cm round, sorbafix tacks Transferred to: Recovery Room Condition: Good
[2022-03-09] MEDS ORDERED: NEOSTIGMINE 1 MG/ML -5 ML ONE (09:27)
[2022-03-09] MEDS ORDERED: SUCCINYLCHOLINE 20 MG/ML (10 ML) IV ONE (09:40)
[2022-03-09] MEDS: HYDROMORPHONE HCL 1 MG/ML INJ ONE ×3 (09:52→11:00)
[2022-03-09] MEDS ORDERED: HYDROCODONE/APAP 5/325 MG TAB ONE (11:42)
[2022-03-09 12:07] VITALS: BP 116/57; TEMP 97.4; O2SAT 95
--- NOTE | 2022-03-09 20:03 | OP ---
Date of Procedure: 03/09/2022 Surgeon: Rohan Castellano MD, Preoperative Diagnosis: Incarcerated ventral hernia. Postoperative Diagnosis: Incarcerated ventral hernia. Procedure Performed: Laparoscopic ventral hernia repair with mesh. Anesthesia: General endotracheal plus local with 0.25% Marcaine. Estimated Blood Loss: Less than 5 cc. Specimens: Hernia contents. Findings: Umbilical hernia with incarcerated omentum. Complications: None. Implants: Bard Ventralight ST mesh with Echo positioning System 11.4 cm round SorbaFix absorbable ta cks were used as well. Disposition: Patient transferred to recovery room in good condition. Procedure In Detail: After informed consent was obtained, patient was brought to the operating room, prepped and draped in the usual sterile fashion, after adequate anesthesia achieved. An area of the left upper quadrant was anesthetized with 0.25% Marcaine, sharply incised. A 5 mm 0-degree optical trocar was introduced in the abdomen without evidence of complication. Insufflation was obtained to 15 mmHg at this time. There was no injury to vital structures. Additional trocar was placed in the left lower quadrant. This area was similarly anesthetized and sharply incised and 12 mm trocar was p laced under direct vision without evidence of complication. I then proceeded to use the LigaSure dev ice to take the omentum out of the midline umbilical hernia which was incarcerated at this point. Af ter the LigaSure device was used to take this down, I swept clean the preperitoneal fat to allow for an appropriate landing zone of the mesh. We had good apposition of the abdominal wall. After this w as performed, the hernia contents were removed and sent off for pathologic examination. I then proce eded to use a 0 V-Loc suture on the Endo Stitch to close the hernia defect in a running fashion with good apposition of the tissues imbricating the hernia sac to eliminate the space. At this point , the 11.[address] mesh was brought and deployed through the 12 mm trocar centered in the periumbilical position and the balloon deployment system was engaged at this point. I then used SorbaFix absorbable fixation tacks to create a double crown fixation to the anterior abdominal wall w ith good apposition to the anterior abdominal wall. Approximately 50 tacks were used. At this point , no bleeding was appreciated. At this point, I then rotated the patient away from myself and closed the left lower quadrant 12 mm trocar using a Abdifatah-Phoebe suture passer with 0 Vicryl in interrup rohan fashion with good approximation of tissue. The abdomen was then completely desufflated under dir ect visualization without any evidence of complication. Remaining trocars were removed. All skin in cisions were then copiously irrigated and closed with 4-0 Monocryl in a running fashion. Dermabond w as placed over top. The patient tolerated the procedure well without any evidence of complication an d transferred to PACU in good condition. All counts were correct at the end of the case. LEYDA/GREGORIO Voice ID: [id number] Report ID: [id number]
== END 2022-03-09 12:25 | disposition home or self-care (01) ==
LOC: OR 06:30
PROVIDERS: ATTEND Surgery
PROC: 0WUF4JZ Supplement Abdominal Wall with Synthetic Substitute, Percutaneous Endoscopic Approach (ICD-10-PCS; principal; 2022-03-09 07:30)
DX: K43.6 Other and unspecified ventral hernia with obstruction, without gangrene (principal); Z20.822 Contact with and (suspected) exposure to COVID-19
CPT/HCPCS: 93005; 85025; 80048; 36415; 82947 ×2; 88302; 71046; 49653; U0002; J2704; J0330; J2250; J3010; J1170; J2710; J0690; J7030 ×2; J2405; C1781